=== PATIENT | female | born 1935 | race Caucasian/White ===

== ENCOUNTER 2024-03-02 16:37 | Emergency (ER) | payer MEDICARE ==
[~2024-03-02] VITALS: Ht 152.4 cm; Wt 45.4 kg
[2024-03-02 16:37] VITALS: BP_SYST 101; PULSE 139; RESP 20; TEMP 97.8; O2SAT 97
[2024-03-02] MEDS ORDERED: iohexoL 350 mgI/mL, 100 ML INFUS..BTL IV ONE (16:49)
[2024-03-02 17:30] LABS: BASOPHILS % (AUTO) 0.2 % (0.0-2.0); EOSINOPHILS % (AUTO) 0.1 % (0.0-4.0); HEMATOCRIT 31.8 % (36-48); HEMOGLOBIN 10.6 g/dL (12.0-16.0); LYMPHOCYTES # (AUTO) 0.6 K/uL (1.0-5.5); LYMPHOCYTES % (AUTO) 7.6 % (20.5-51.5); MEAN CORPUSCULAR HEMOGLOBIN 26 pg (27-31); MEAN CORPUSCULAR HGB CONC 33 % (32-36); MEAN CORPUSCULAR VOLUME 78 fL (79.0-98.0); MONOCYTES # (AUTO) 0.5 K/uL (0.0-1.0); MONOCYTES % (AUTO) 5.8 % (1.7-9.3); NEUTROPHILS # (AUTO) 7.3 K/uL (1.8-7.7); NEUTROPHILS % (AUTO) 86.3 % (40.0-70.0); PLATELET COUNT (AUTO) 421 K/uL (130-430); RED BLOOD CELL COUNT(AUTO) 4.11 MIL/uL (4.2-6.2); RED CELL DISTRIBUTION WIDTH 15.9 % (9.0-15.0); WHITE BLOOD COUNT (AUTO) 8.5 K/uL (4.8-10.8)
[2024-03-02 17:54] LABS: ANION GAP 8 (5-15); CARBON DIOXIDE 30 mmol/L (23-29); CHLORIDE 96 mmol/L (98-107); CREATININE 2.45 mg/dL (0.55-1.30); GLUCOSE 206 mg/dL (74-106); POTASSIUM 3.2 mmol/L (3.5-5.1); SODIUM SERUM 134 mmol/L (136-145); UREA NITROGEN, BLOOD 77 mg/dL (8-21)
[2024-03-02] MEDS ORDERED: METO50TA16 PO (18:03)
[2024-03-02] MEDS ORDERED: ATOR40TA68 PO (18:03)
[2024-03-02] MEDS ORDERED: PRAD75 PO (18:03)
[2024-03-02] MEDS ORDERED: TIOT4MIS3 INH (18:03)
[2024-03-02] MEDS ORDERED: LEVO75TA7 PO (18:03)
[2024-03-02] MEDS ORDERED: FURO40TA5 PO (18:03)
[2024-03-02 18:21] LABS: INR 2.1 (0.8-1.2)
[2024-03-02 18:29] LABS: PROTHROMBIN TIME 21.4 SECS (9.5-12.5)
[2024-03-02 18:46] LABS: BILIRUBIN,URINE NEGATIVE (NEGATIVE); BLOOD, URINE NEGATIVE (NEGATIVE); CLARITY/URINE CLEAR (CLEAR); COLOR,URINE YELLOW (YELLOW); GLUCOSE,URINE NEGATIVE (NEGATIVE); KETONES,URINE NEGATIVE (NEGATIVE); LEUKOCYTE ESTERASE ,URINE NEGATIVE (NEGATIVE); NITRITE, URINE NEGATIVE (NEGATIVE); PH,URINE 7.5 (5.0-8.0); PROTEIN URINE NEGATIVE (NEGATIVE); UROBILINOGEN,URINE 0.2 (0.2-1.0)
[2024-03-02 19:08] LABS: BARBITURATE, URINE NEGATIVE (NEG <=200); BENZODIAZEPINE, URINE NEGATIVE (NEG <=150); CANNABINOID, URINE NEGATIVE (NEG <=50); COCAINE, URINE NEGATIVE (NEG <=150); METHAMPHETAMINES SCREEN,URINE NEGATIVE (NEG <=500); OPIATE, URINE NEGATIVE (NEG <=100); PHENCYCLIDINE SCREEN,URINE NEGATIVE (NEG <=25); UR TRICYCLIC ANTIDEPRESSANTS NEGATIVE (NEG <=300); URINE AMPHETAMINE NEGATIVE (NEG <=500); URINE METHADONE NEGATIVE (NEG <=200); URINE OXYCODONE SCREEN NEGATIVE (NEG <=100)
[2024-03-02] MEDS: NACL 0.9% 1,000 ML IV ONE (19:19)
[2024-03-02 19:36] LABS: CHOLESTEROL 134 mg/dL (<200); HDL CHOLESTEROL 63 mg/dL (>55); TRIGLYCERIDES 78 mg/dL (30-150)
[2024-03-02] MEDS: NS 500 ML IV ONE (23:58)
[2024-03-02] MEDS: METOPROLOL TARTRATE 5 MG/5 ML VIAL IVP ONE (23:58)
[2024-03-03 00:05] VITALS: BP_SYST 139; PULSE 114; RESP 16; TEMP 97.9; O2SAT 100
[2024-03-03] MEDS ORDERED: METOPROLOL TARTRATE 5 MG/5 ML VIAL ONE (00:08)
[2024-03-03] MEDS: METOPROLOL TARTRATE 5 MG/5 ML VIAL IVP ONE (00:16)
== END 2024-03-03 00:05 | disposition short-term general hospital (02) ==
LOC: SED 16:37
DX: I63.9 Cerebral infarction, unspecified (principal); N28.9 Disorder of kidney and ureter, unspecified; R41.82 Altered mental status, unspecified; Z79.899 Other long term (current) drug therapy; Z79.2 Long term (current) use of antibiotics
CPT/HCPCS: 99285; 96374; 70450; 71045; 96361; 80061; 80307; 80048; 81001; 83037; 85025; 85610; 85730; 86886; 86900; 86901; 84484; 36415; 93005; 82948; 81003; J7030; J3490; Q9967